=== PATIENT | male | born 1990 | race African-American/Black ===

== ENCOUNTER 2016-10-08 02:03 | Emergency (ER) | payer SELFPAY ==
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
== END 2016-10-08 06:58 | disposition home or self-care (01) ==
LOC: CED 02:03
DX: S02.5XXA Fracture of tooth (traumatic), initial encounter for closed fracture (principal); S00.83XA Contusion of other part of head, initial encounter; W22.8XXA Striking against or struck by other objects, initial encounter; F17.210 Nicotine dependence, cigarettes, uncomplicated; F10.129 Alcohol abuse with intoxication, unspecified; Y90.8 Blood alcohol level of 240 mg/100 ml or more
CPT/HCPCS: 70450; 70486; 72125; 96360; 99284; G0480